=== PATIENT | male | born 1990 | race Asian ===

== ENCOUNTER 2023-07-05 10:22 | Emergency (ER) | payer OTHER, BC ==
[2023-07-05 10:28] VITALS: BP 157/80; PULSE 78; RESP 18; TEMP 98.4; BMI 27.1
[2023-07-05] MEDS ORDERED: KETOROLAC TROMETHAMINE 30 MG/1 ML VIAL IM ONE (10:44)
[2023-07-05] MEDS ORDERED: KETOROLAC TROMETHAMINE 30 MG/1 ML VIAL ONE (10:45)
== END 2023-07-05 12:06 | disposition home or self-care (01) ==
LOC: JERFT 10:22
PROC: 3E0233Z Introduction of Anti-inflammatory into Muscle, Percutaneous Approach (ICD-10-PCS; principal; 2023-07-05)
DX: M54.50 Low back pain, unspecified (principal); S39.012A Strain of muscle, fascia and tendon of lower back, initial encounter; X50.0XXA Overexertion from strenuous movement or load, initial encounter
CPT/HCPCS: 72100-TC-FY; 99284-25